=== PATIENT | male | born 1965 | race Caucasian/White ===

== ENCOUNTER 2024-01-10 14:28 | Emergency (ER) | payer MEDICARE ==
[~2024-01-10] VITALS: Ht 170.1 cm; Wt 63.5 kg
[2024-01-10] MEDS ORDERED: PREDNISONE10 MG PO (14:54)
[2024-01-10] MEDS ORDERED: methylPREDNISolone sod succ 125 MG VIAL IM ONE (14:55)
== END 2024-01-10 14:44 | disposition home or self-care (01) ==
LOC: ED 14:28
DX: L23.7 Allergic contact dermatitis due to plants, except food (principal); Z88.6 Allergy status to analgesic agent

== ENCOUNTER 2024-02-14 11:50 | Emergency (ER) | payer MEDICARE ==
[~2024-02-14] VITALS: Ht 175.2 cm; Wt 72.6 kg
[~2024-02-14 11:50] MED LIST: PREDNISONE10 MG PO
== END 2024-02-14 12:15 | disposition home or self-care (01) ==
LOC: ED 11:50
DX: L23.7 Allergic contact dermatitis due to plants, except food (principal); Z88.6 Allergy status to analgesic agent

== ENCOUNTER 2024-11-02 09:07 | Observation (INO) | payer OTHER ==
[~2024-11-02] VITALS: Ht 175.3 cm; Wt 70.1 kg
[2024-11-02] MEDS ORDERED: DIVALPROEX SOD125 MG PO (09:13)
[2024-11-02] MEDS ORDERED: ATORVASTATIN CA10 M1 PO (09:13)
[2024-11-02 09:14] VITALS: BP 117/87
[2024-11-02] MEDS ORDERED: ACCUNEB 0.1.25 MG/1 INH (09:14)
[2024-11-02 09:24] LABS: BASO # 0.1 10*3/uL (0.0-0.1); BASO % 0.8 % (0.0-1.0); EOS # 0.2 10*3/uL (0.0-0.4); EOS % 3.6 % (1.0-4.0); HEMATOCRIT 46.4 % (42.0-52.0); MEAN CELL VOLUME 80.1 fl (80.0-94.0); MEAN CORPUSCULAR HGB 25.6 pg (27.0-31.0); MEAN CORPUSCULAR HGB CONC 31.9 g/dl (33.0-37.0); MEAN PLATELET VOLUME 9.5 fl (9.6-12.3); MONO # 0.7 10*3/uL (0.1-1.0); MONO % 10.7 % (3.0-9.0); NEUT # 3.2 10*3/uL (2.3-7.9); NEUT % 48.3 % (47.0-73.0); PLATELET COUNT AUTOMATED 230 10*3/uL (130-400); RED BLOOD COUNT 5.79 10*6/uL (4.50-5.90); RED CELL DISTRI WIDTH 13.6 % (0-14.5); WHITE BLOOD COUNT 6.6 10*3/uL (4.8-10.8)
[2024-11-02 09:41] LABS: ACT PARTIAL THROMBO TIME 26.5 SECONDS (20.0-32.1)
[2024-11-02 09:56] LABS: BUN 15 mg/dl (9-23); CHLORIDE 103 mmol/L (98-107); POTASSIUM 3.9 mmol/L (3.4-5.1)
[2024-11-02] MEDS ORDERED: Acetaminophen/Oxycodone 5 MG/325 MG TABLET PO ONE (11:45)
[2024-11-02 12:10] VITALS: BP 130/91
[2024-11-02] MEDS ORDERED: ACETAMINOPHEN 325 MG TAB PO PRN (12:10)
[2024-11-02] MEDS ORDERED: BISACODYL 10 MG SUPP R PRN (12:10)
[2024-11-02] MEDS ORDERED: Magnesium Hydroxide 30 ML UDC PO PRN (12:10)
[2024-11-02] MEDS ORDERED: ACETAMINOPHEN 650 MG SUPP R PRN (12:10)
[2024-11-02] MEDS ORDERED: Ondansetron Hydrochloride 4 MG/2 ML VIAL IV PRN (12:10)
[2024-11-02] MEDS ORDERED: BISACODYL 5 MG TAB PO PRN (12:10)
[2024-11-02] MEDS ORDERED: TEMAZEPAM 15 MG CAP PO PRN (12:10)
[2024-11-02] MEDS ORDERED: NITROGLYCERIN 1 IN PACKET T PRN (12:20)
[2024-11-02 14:07] VITALS: BP 126/90
[2024-11-02 14:17] VITALS: BP 125/73
[2024-11-02 15:15] VITALS: BP 125/73
[2024-11-02 20:00] VITALS: BP 115/76
[2024-11-02] MEDS ORDERED: Metoprolol Tartrate 25 MG TAB PO SCH (22:00)
[2024-11-02] MEDS ORDERED: DIVALPROEX SODIUM 125 MG TAB PO SCH (22:00)
[2024-11-02] MEDS ORDERED: ATORVASTATIN CALCIUM 40 MG TABLET PO SCH (22:00)
[2024-11-03] VITALS: BP 121/74
[2024-11-03] MEDS ORDERED: Regadenoson 0.4 MG/5 ML SYR IV ONE (06:22)
[2024-11-03 07:14] LABS: BASO % 0.6 % (0.0-1.0); EOS # 0.3 10*3/uL (0.0-0.4); HEMATOCRIT 47.3 % (42.0-52.0); MEAN CELL VOLUME 80.7 fl (80.0-94.0); MEAN CORPUSCULAR HGB 25.4 pg (27.0-31.0); MEAN CORPUSCULAR HGB CONC 31.5 g/dl (33.0-37.0); MEAN PLATELET VOLUME 9.7 fl (9.6-12.3); MONO # 0.7 10*3/uL (0.1-1.0); MONO % 9.5 % (3.0-9.0); NEUT # 3.6 10*3/uL (2.3-7.9); NEUT % 49.4 % (47.0-73.0); PLATELET COUNT AUTOMATED 223 10*3/uL (130-400); RED BLOOD COUNT 5.86 10*6/uL (4.50-5.90); RED CELL DISTRI WIDTH 13.7 % (0-14.5); WHITE BLOOD COUNT 7.2 10*3/uL (4.8-10.8)
[2024-11-03 08:00] VITALS: BP 125/54
[2024-11-03 08:01] LABS: ALKALINE PHOSPHATASE 82 U/L (46-116); BUN 12 mg/dl (9-23); CHLORIDE 105 mmol/L (98-107); FREE T4 1.08 ng/dl (0.89-1.76); POTASSIUM 3.9 mmol/L (3.4-5.1); SGPT/ALT 21 U/L (5-49); TOTAL PROTEIN 7.2 gm/dL (6.0-8.0)
[2024-11-03 09:29] LABS: VITAMIN D, 25-HYDROXY 40.7 ng/mL (30-100)
[2024-11-03] MEDS ORDERED: Enoxaparin Sodium 40 MG/0.4 ML SYR SC SCH (10:00)
[2024-11-03 12:00] VITALS: BP 126/68
== END 2024-11-03 18:05 | disposition home or self-care (01) ==
LOC: ED 09:07 → EDHOLD 11:57 → 5E 14:45
PROVIDERS: Internal Medicine; ADMIT Family Medicine; ATTEND Family Medicine
DX: R07.89 Other chest pain (principal); J45.998 Other asthma; T39.015A Adverse effect of aspirin, initial encounter; E78.5 Hyperlipidemia, unspecified; F31.9 Bipolar disorder, unspecified; H90.5 Unspecified sensorineural hearing loss; R73.9 Hyperglycemia, unspecified; Z79.899 Other long term (current) drug therapy